=== PATIENT | male | born 1960 | race Hispanic/Latino ===

== ENCOUNTER 2018-11-29 16:14 | Emergency (ER) | payer OTHER ==
[~2018-11-29] VITALS: Ht 185.4 cm; Wt 113.4 kg
[~2018-11-29 16:14] MED LIST: ASPIR 8181 MG PO; ATENOLOL25 MG PO; METFORMIN HCL500 MG PO; MOTRIN800 MG PO; OMEPRAZOLE20 MG PO; SIMVASTATIN40 MG PO; ZOCOR40 MG PO; [UNRECOGNIZED DRUG - REMARK]
--- OUTSIDE RECORDS SUMMARY | 2018-11-29 16:17 | XMS REPORT ---
Author Author [facility] Address Unknown Phone Unavailable Care Team Providers Care Field Services Analyst Name Role Phone Unavailable Unavailable Payers Payer Name Policy Type Policy Number Effective Date Expiration Date Problems This patient has no known problems. Allergies, Adverse Reactions, Alerts Allergy Name Allergy Type Status Severity Reaction(s) Onset Date Inactive Date Treating Clinician Comments No Known Allergies DA Active U 2018-10-04 00:00:00 No Known Allergies DA Active U 2014-06-09 00:00:00 Medications This patient has no known medications. Results Test Description Test Time Test Comments Text Results Atomic Results Result Comments GLUBED 2018-10-18 11:43:00 GLUBED (test code=GLUBED) 129 mg/dL 60-125 BASIC METABOLIC [id number] 06:42:00* Test Item Value Reference Range Comments SODIUM (test code=NA) 142 mmol/L 136-145 POTASSIUM (test code=K) 5.2 mmol/L 3.5-5.1 CHLORIDE (test code=CL) 106.0 mmol/L 98-107 CARBON DIOXIDE (test code=CO2) 22.3 mmol/L 21-32 GLUCOSE (test code=GLU) 197 mg/dL 70-110 BLOOD UREA NITROGEN (test code=BUN) 23 mg/dL 7-18 GLOMERULAR FILTRATION RATE (test code=GFR) 56.7 >60 Unit of measure: mL/min/1.73 [id number] Range:Healthy Adults >90 mL/min/1.73 m2 For Chronic Kidney Disease: Stage II Mild Decrease in GFR 60-90 Stage III Moderate Decrease in GFR 30-59 Stage IV Severe Decrease in GFR 15-29 Stage V Kidney Failure <15 CREATININE (test code=CREAT) 1.30 mg/dL 0.55-1.30 CALCIUM (test code=CA) 8.4 mg/dL 8.2-10.1 HGB [id number] 05:44:00* Test Item Value Reference Range Comments HEMOGLOBIN (test code=HGB) 12.4 g/dL 12-16 HEMATOCRIT (test code=HCT) 37.3 % 37-47 [id number] 05:26:00* Test Item Value Reference Range Comments GLUBED (test code=GLUBED) 174 mg/dL 60-125 [id number] 12:37:00* Test Item Value Reference Range Comments GLUBED (test code=GLUBED) 107 mg/dL 60-125 AB HIV 1 12:39:00* Test Item Value Reference Range Comments AB HIV 1 2 (test code=CWB24SP) NONREACTIVE NONREACTIVE Done by [employer] HIV Ag/Ab Combo Screen AB HIV 12:39:00* Test Item Value Reference Range Comments AB HIV 1 (test code=HIV1AB) NONREACTIVE NONREACTIVE Done by [employer] HIV Ag/Ab Combo Screen CBC W/AUTO [id number] 10:33:00* Test Item Value Reference Range Comments WHITE BLOOD CELL (test code=WBC) 11.0 K/mm3 5.7-10.5 RED BLOOD CELL (test code=RBC) 4.45 M/mm3 4.2-5.4 HEMOGLOBIN (test code=HGB) 14.3 g/dL - HEMATOCRIT (test code=HCT) 42.3 % 37-47 MEAN CELL VOLUME (test code=MCV) 95 fL 80-98 MEAN CELL HGB (test code=MCH) 32.1 pg 27-34 MEAN CELL HGB CONCENTRATION (test code=MCHC) 33.8 g/dL 30.8-34.1 RED CELL DISTRIBUTION WIDTH (test code=RDW) 12.4 % 11-16 PLT (test code=PLT) 265 K/mm3 130-400 MEAN PLATELET VOLUME (test code=MPV) 10.0 fL 8.9-12.1 NEUTROPHIL % (test code=NT%) 62.4 % 45-70 LYMPHOCYTE % (test code=LY%) 27.4 % 20-40 MONOCYTE % (test code=MO%) 7.5 % 3-10 EOSINOPHIL % (test code=EO%) 1.5 % 1-5 BASOPHIL % (test code=BA%) 0.7 % 0.0-1.1 NEUTROPHIL # (test code=NT#) 6.87 K/mm3 2.00-7.50 LYMPHOCYTE # (test code=LY#) 3.01 K/mm3 1.50-4.00 MONOCYTE # (test code=MO#) 0.83 K/mm3 0.2-0.8 EOSINOPHIL # (test code=EO#) 0.16 K/mm3 0.04-0.4 BASOPHIL # (test code=BA#) 0.08 K/mm3 0.02-0.10 MANUAL DIFF REQUIRED (test code=MDIFF) NO MANUAL DIFF NUCLEATED RED BLOOD CELL (test code=NRBC) 0 % 0-0 PROTHROMBIN [id number] 10:33:00* Test Item Value Reference Range Comments PROTHROMBIN TIME PATIENT (test code=PTP) 11.8 secs 10.1-12.5 INTERNATIONAL NORMAL RATIO (test code=INR) 1.04 <2.0 RECOMMENDED THERAPEUTIC RANGE FOR ORAL ANTICOAGULANTTREATMENT: CONDITION INRProphylaxis of venous thrombosis in 2.0 - 3.0 high-risk medical or surgical patientsTreatment of venous thrombosis 2.0 - 3.0Prevention of embolism 2.0 - 3.0Prevention of recurrent embolism, or 3.0 - 4.5 patients with mechanical prosthetic intravascular valves IS PATIENT ON ANTICOAGULANTS ? [facility] been notified if Patient is on Heparin D rip? NOIf Yes, order CBC, OCCULT BLOOD, PT every other day NTHROMBOPLASTIN TIME [id number] 10:33:00* Test Item Value Reference Range Comments PTT ACTIVATED (test code=APTT) 32.0 secs 24.9-37.0 IS PATIENT ON ANTICOAGULANTS ? [facility] been notified if Patient is on Heparin D rip? NOIf Yes, order CBC, OCCULT BLOOD, PT every other day NCOMPREHENSIVE METABOLIC [id number] 10:32:00* Test Item Value Reference Range Comments SODIUM (test code=NA) 135 mmol/L 136-145 POTASSIUM (test code=K) 4.0 mmol/L 3.5-5.1 CHLORIDE (test code=CL) 99.0 mmol/L 98-107 CARBON DIOXIDE (test code=CO2) 25.1 mmol/L 21-32 GLUCOSE (test code=GLU) 104 mg/dL 70-110 BLOOD UREA NITROGEN (test code=BUN) 17 mg/dL 7-18 GLOMERULAR FILTRATION RATE (test code=GFR) 65.3 >60 Unit of measure: mL/min/1.73 [id number] Range:Healthy Adults >90 mL/min/1.73 m2 For Chronic Kidney Disease: Stage II Mild Decrease in GFR 60-90 Stage III Moderate Decrease in GFR 30-59 Stage IV Severe Decrease in GFR 15-29 Stage V Kidney Failure <15 CREATININE (test code=CREAT) 1.15 mg/dL 0.55-1.30 TOTAL PROTEIN (test code=PROT) 7.2 g/dL 6.4-8.2 ALBUMIN (test code=ALB) 4.1 g/dL 3.4-5.0 GLOBULIN (test code=GLOB) 3.1 g/dL 2.2-4.2 ALBUMIN/GLOBULIN RATIO (test code=A/G) 1.3 0.7-2.0 CALCIUM (test code=CA) 9.0 mg/dL 8.2-10.1 BILIRUBIN TOTAL (test code=BILT) 0.75 mg/dL 0.2-1.00 SGOT/AST (test code=AST) 36.0 U/L 15-37 SGPT/ALT (test code=ALT) 58.0 U/L 12-78 Please note new normal range. ALKALINE PHOSPHATASE TOTAL (test code=ALKP) 59 U/L 46-116 URINALYSIS [id number] 09:56:00* Test Item Value Reference Range Comments UA COLOR (test code=COLU) YELLOW YELLOW UA APPEARANCE (test code=APPU) CLEAR CLEAR UA GLUCOSE DIPSTICK (test code=DGLUU) NEGATIVE NEGATIVE UA BILIRUBIN DIPSTICK (test code=BILU) NEGATIVE NEGATIVE UA KETONE DIPSTICK (test code=KETU) NEGATIVE mg/dL NEGATIVE UA SPECIFIC GRAVITY (test code=SGU) 1.020 1.003-1.035 UA BLOOD DIPSTICK (test code=AL) NEGATIVE NEGATIVE UA PH DIPSTICK (test code=BENJA) 5.5 >6.5 UA PROTEIN DIPSTICK (test code=PROU) NEGATIVE mg/dL NEG UA UROBILINIOGEN DIPSTICK (test code=URO) 0.2 mg/dL NORM UA NITRITE DIPSTICK (test code=SEGUN) NEGATIVE NEG UA LEUKOCYTE ESTERASE DIPSTICK (test code=LEUU) NEGATIVE NEGATIVE UA WBC (test code=WBCU) <5 /HPF 0-2 UA RBC (test code=RBCU) NONE SEEN /HPF 0-2 UA EPITHELIAL CELLS (test code=EPIU) 0-2 /HPF 0-2 UA BACTERIA (test code=BACU) RARE /HPF NONE UA HYALINE CAST (test code=HYALU) RARE /LPF NONE SEEN UA FINE GRANULAR CAST (test code=FINEU) RARE /LPF NONE SEEN UA MUCUS (test code=MUCU) RARE /LPF NONE SEEN
[2018-11-29 17:14] LABS: BASOPHILS # (AUTO) 0.1 (0.0-0.1); BASOPHILS % 0.5 % (0.0-1.0); EOSINOPHILS # (AUTO) 0.1 (0.0-0.4); EOSINOPHILS % 1.3 % (0.0-6.0); HEMATOCRIT 34.5 % (38.2-49.6); HEMOGLOBIN 10.9 g/dL (14.0-18.0); LYMPHOCYTES # (AUTO) 2.6 (1.0-3.2); LYMPHOCYTES % 26.1 % (18.0-39.1); MEAN CORPUSCULAR HEMOGLOBIN 29.9 pg (28-32); MEAN CORPUSCULAR HGB CONC 31.6 g/dL (31-35); MEAN CORPUSCULAR VOLUME 94.5 fL (81-99); MONOCYTES # (AUTO) 0.8 (0.2-0.8); NEUTROPHILS # (AUTO) 6.3 (2.1-6.9); NEUTROPHILS % 63.6 % (38.7-80.0); PLATELET COUNT 327 x10e3/uL (140-360); RED BLOOD COUNT 3.65 x10e6/uL (4.3-5.7); RED CELL DISTRIBUTION WIDTH 12.5 % (11.7-14.4)
[2018-11-29 17:23] LABS: INR 0.93
[2018-11-29 17:24] LABS: PARTIAL THROMBOPLASTIN TIME 32.2 seconds (23.8-35.5)
[2018-11-29 17:31] LABS: ALANINE AMINOTRANSFERASE 13 IU/L (0-55); ALBUMIN 3.7 g/dL (3.5-5.0); ALBUMIN/GLOBULIN RATIO 0.9 (0.8-2.0); ALKALINE PHOSPHATASE 82 IU/L (40-150); ANION GAP 14.7 mmol/L (8-16); BLOOD UREA NITROGEN 14 mg/dL (7-26); BUN/CREATININE RATIO 18 (6-25); CALCIUM 9.6 mg/dL (8.4-10.2); CARBON DIOXIDE 25 mmol/L (22-29); CHLORIDE 105 mmol/L (98-107); CREATINE KINASE 96 IU/L (30-200); EST GLOMERULAR FILTRATION RATE > 60 ML/MIN (60-); GLUCOSE 95 mg/dL (74-118); POTASSIUM 3.7 mmol/L (3.5-5.1); SODIUM 141 mmol/L (136-145)
[2018-11-29] MEDS ORDERED: ENOXAPARIN SODIUM INJ 100 MG/ML SYR SC STA (17:45)
--- NOTE | 2018-11-29 18:10 | Diagnostic Imaging Report ---
Frontal and lateral views of the chest. HISTORY: Shortness of breath, history of left knee replacement and smoking COMPARISON: None available. DISCUSSION: On the frontal view, the costophrenic angles are not entirely included. Lungs: The lungs are well inflated. No evidence of a consolidative pneumonia or pulmonary alveolar edema. Pleura: No pleural effusion or pneumothorax. Heart and mediastinum: The cardiomediastinal silhouette appear(s) unremarkable. Bones and soft tissues: Appear unremarkable. IMPRESSION: No acute radiographic abnormality. Signed by: Dr. Arjun Arambula D.O., M.M.M. on 11/29/2018 6:07 PM
--- NOTE | 2018-11-29 19:18 | Diagnostic Imaging Report ---
CT CHEST WITH CONTRAST HISTORY: pe protocol, status post knee surgery 6 weeks ago COMPARISON: Chest radiograph from the same date. TECHNIQUE: CT scan of the chest WITH intravenous contrast, using PE protocol. The chest was scanned utilizing a multidetector helical scanner from the lung apex through the level of the adrenal glands. Thin section reconstructions were obtained with special concentration on the pulmonary arteries. IV CONTRAST: 100 cc of [id number]. PROTOCOL: PE RADIATION DOSE: Total DLP: 729.54 mGy*cm Dose modulation, iterative reconstruction, and/or weight based adjustment of the mA/kV was utilized to reduce the radiation dose to as low as reasonably achievable. COMPLICATIONS: None DISCUSSION: Lungs: The lungs are well inflated and clear. Vessels: No filling defects are identified within the pulmonary arteries to the segmental levels. Scattered atherosclerotic vascular calcifications, including the coronary arteries. Airways: The major airways are clear. Pleura: No pleural effusion or pneumothorax. Heart and mediastinum: Unremarkable Abdomen: Limited evaluation of the upper abdomen. Lymph nodes: No pathologically enlarged lymph node. Bones: No acute bone abnormality. Soft tissues: Unremarkable IMPRESSION: 1. No pulmonary embolus. 2. Coronary atherosclerosis. Signed by: Dr. Arjun Arambula D.O., M.M.M. on 11/29/2018 7:15 PM
[2018-11-29] MEDS ORDERED: SODIUM CHLORIDE 0.9% 50ML 50 ML ONE (19:33)
[2018-11-29] MEDS ORDERED: IOPAMIDOL 370 MG/ML 200 ML INFUS..BTL INJ ONE (19:34)
== END 2018-11-29 19:47 | disposition home or self-care (01) ==
LOC: ER 16:14
DX: R06.00 Dyspnea, unspecified (principal); I10 Essential (primary) hypertension; E11.9 Type 2 diabetes mellitus without complications; E78.5 Hyperlipidemia, unspecified; D64.9 Anemia, unspecified; Z87.891 Personal history of nicotine dependence; Z96.652 Presence of left artificial knee joint; Z79.84 Long term (current) use of oral hypoglycemic drugs; Z79.82 Long term (current) use of aspirin
CPT/HCPCS: 36415; 71046; 71260; 80053; 82550; 82553; 84484; 85025; 85379; 85610; 85730; 93005; 99284; J1650; Q9967